=== PATIENT | male | born 1930 | race Caucasian/White ===

== ENCOUNTER 2017-09-27 05:49 | Inpatient (IN) | payer MEDICARE, OTHER ==
[~2017-09-27] VITALS: Ht 167.6 cm; Wt 93.9 kg
[2017-09-27] VITALS (12 sets, daily range): BP systolic 124–174; BP diastolic 55–75
[~2017-09-27 05:49] MED LIST: AMLODIPINE BESYL5 MG ORAL; CRESTOR10 M2 ORAL; CYMBALTA30 MG ORAL; LOSARTAN POTASS50 MG ORAL; SYNTHROID25 MCG ORAL; metoprolol PO
[2017-09-27] MEDS ORDERED: TAMSULOSIN HCL0.4 MG ORAL (06:49)
[2017-09-27] MEDS ORDERED: ASPIR 8181 MG ORAL (06:49)
[2017-09-27] MEDS ORDERED: VITAMIN D1000 UNI2 PO (06:49)
[2017-09-27] MEDS ORDERED: MELOXICAM15 MG PO (06:49)
[2017-09-27] MEDS ORDERED: ZETIA10 MG ORAL (06:49)
[2017-09-27] MEDS ORDERED: ceFAZolin sod 1 GM in NS 55 ML IVPB SCH (07:00)
--- NOTE | 2017-09-27 07:22 | Anethesia Preoperative Eval ---
Anesthesia Pre-op PMH/ROS General Date of Evaluation: Sep 27, 2017 Anesthesiologist: Erwin ASA Score: ASA 3 Mallampati Score Class I : Soft palate, uvula, fauces, pillars visible Class II: Soft palate, uvula, fauces visible Class III: Soft palate, base of uvula visible Class IV: Only hard plate visible Mallampati Classification: Class III Surgeon: Dilshad Diagnosis: BPH Surgical Procedure: TURP, and suprapubic tube placement Anesthesia History: none Family History: no anesthesia problems Allergies: Coded Allergies: NITROFURANTOIN (Verified Allergy, Intermediate, hives, 09/26/17) Medications: see eMAR Past Medical History Cardiovascular: Reports: HTN, CAD, VT, other - CHF, HLD; Denies: valve dz, arrhythmia Pulmonary: Denies: asthma, COPD, ALON, other Gastrointestinal/Genitourinary: Reports: GERD, other - BPH, h/o colon ca s/p resection; Denies: CRI, ESRD Neurologic/Psychiatric: Reports: depression/anxiety; Denies: dementia, CVA, TIA, other Endocrine: Reports: hypothyroidism; Denies: DM, steroids, other HEENT: Reports: [place] (L); Denies: cataract (L), cataract (R), glaucoma, [place] (R), other Hematology/Immune: Denies: anemia, DVT, bleeding disorder, other Musculoskeletal/Integumentary: Reports: OA; Denies: RA, DJD, DDD, edema, other Other: obesity PSxH Narrative: partial colectomy, bilateral cataract Anesthesia Pre-op Phys. Exam Physician Exam Last Vital Signs Date Time Temp Pulse Resp B/P (MAP) Pulse Ox O2 Delivery O2 Flow Rate FiO2 09/27/17 07:21 97.7 57 20 135/59 97 Room Air 97.7 Constitutional: NAD Cardiovascular: RRR Respiratory: other - distant, and dimiished breath sounds bilaterally Airway Exam Mallampati Score: Class III MO: full ROM: full Teeth: missing Dentures: upper, lower Anesthesia Pre-op A/P Labs see chart Studies Pre-op Studies: EKG - sb Risk Assessment & Plan Assessment: ASA III Plan: GA Status Change Before Surgery: No Pre-Antibiotics Drug: Ancef 2g Given Within 1 Hr of Incision: Yes CADE PELAEZ M.D. Sep 27, 2017 07:22
[2017-09-27] MEDS ORDERED: fentaNYL 100 mcg/2 mL IV ONE (07:26)
[2017-09-27] MEDS ORDERED: Propofol 200mg/20ml IV ONE (07:26)
[2017-09-27] MEDS ORDERED: Lidocaine 1% MPF 10mg/ml 5ml ONE (07:26)
[2017-09-27] MEDS ORDERED: Midazolam 2mg/2ml Inj ONE (07:26)
[2017-09-27] MEDS ORDERED: Zemuron 50mg/5ml Inj IV ONE (07:45)
[2017-09-27] MEDS ORDERED: Sterile Water Irrig 1000ml IRRIG ONE (07:45)
[2017-09-27] MEDS ORDERED: Sterile Water For Irrig 2000ml IRRIG ONE (07:45)
[2017-09-27] MEDS ORDERED: LR 1000ml ONE (07:45)
--- NOTE | 2017-09-27 07:56 | Pre-Procedure Note/Attestation ---
Pre-Procedure Note/Attestation Complete Prior to Procedure Planned Procedure: not applicable Procedure Narrative: TURP SP tube placement Indications for Procedure Pre-Operative Diagnosis: retention Attestation I attest that I discussed the nature of the procedure; its benefits; risks and complications; and alternatives (and the risks and benefits of such alternatives ), prior to the procedure, with the patient (or the patient's legal livestock sales representative). I attest that, if there was a reasonable possibility of needing a blood transfusion, the patient (or the patient's legal livestock sales representative) was given the [facility] standardized written summary, pursuant to the Primo Ben Blood Safety Act ([place] Health and Safety Code # 1645, as amended). I attest that I re-evaluated the patient just prior to the surgery and that there has been no change in the patient's H&P, except as documented below: Lm Yung MD Sep 27, 2017 07:56
[2017-09-27] MEDS ORDERED: LR 1000ml 1,000 ML IVLG SCH (08:14)
[2017-09-27] MEDS ORDERED: Ketorolac 30mg Inj IV PRN (08:15)
[2017-09-27] MEDS ORDERED: Hydromorphone 0.5mg/0.5ml inj IVP PRN (08:15)
[2017-09-27] MEDS ORDERED: DiphenhydrAMINE 50mg/ml Inj IVP PRN (08:15)
[2017-09-27] MEDS ORDERED: Labetalol 5mg/ml 20ml vial IV PRN (08:15)
[2017-09-27] MEDS ORDERED: Metoclopramide 10mg/2ml Inj IVP PRN (08:15)
[2017-09-27] MEDS ORDERED: LORazepam Inj 2mg/ml 1ml IV PRN (08:15)
[2017-09-27] MEDS ORDERED: fentaNYL 100 mcg/2 mL IV PRN (08:15)
[2017-09-27] MEDS ORDERED: Midazolam 2mg/2ml Inj IVP PRN (08:15)
--- NOTE | 2017-09-27 08:19 | Immediate Post-Op Evaluation ---
Immediate Post-Op Evalulation Immediate Post-Op Evalulation Procedure: TURP and suprapubic tube placement Date of Evaluation: Sep 27, 2017 Time of Evaluation: 09:20 IV Fluids: 600 Blood Products: 0 Estimated Blood Loss: 50 Urinary Output: 0 Blood Pressure Systolic: 129 Blood Pressure Diastolic: 56 Pulse Rate: 62 Respiratory Rate: 17 O2 Sat by Pulse Oximetry: 97 Temperature (Fahrenheit): 97.2 Pain Score (1-10): 0 Nausea: No Vomiting: No Complications 0 Patient Status: awake, reacts, patent, none Hydration Status: adequate Drug: Ancef 2g Given Within 1 Hr of Incision: Yes Time Given: 08:05 CADE PELAEZ M.D. Sep 27, 2017 08:19
[2017-09-27] MEDS ORDERED: Dexamethasone 4mg/ml vial ONE (08:30)
[2017-09-27] MEDS ORDERED: Norco 5mg/325mg tab ORAL PRN (09:00)
[2017-09-27] MEDS ORDERED: Morphine Sulfate 4mg/ml Inj IVP PRN (09:00)
[2017-09-27] MEDS: Docusate 100mg cap ORAL SCH ×2 (09:00→18:08)
--- NOTE | 2017-09-27 09:12 | Brief Operative Note ---
Immediate Post Operative Note Operative Note Pre-op Diagnosis: retention Procedure: TURP SP tube placement Post-op Diagnosis: same Post-op Diagnosis: same as pre-op Surgeon: Bill Yung Anesthesia: general Specimen: yes Complications: none Condition: stable Fluids: 1000 Estimated Blood Loss: minimal Implant(s) used?: No Lm Yung MD Sep 27, 2017 09:12
[2017-09-27 10:09] LABS: BASOPHILS % (AUTO) 0.6 % (0.0-2.0); EOSINOPHILS % (AUTO) 3.8 % (0.0-3.0); HEMATOCRIT 38.2 % (42.0-52.0); HEMOGLOBIN 12.8 G/DL (14.2-18.0); LYMPHOCYTES % (AUTO) 13.5 % (20.0-45.0); MEAN CORPUSCULAR VOLUME 95 FL (80-99); MONOCYTES % (AUTO) 2.9 % (1.0-10.0); NEUTROPHILS % (AUTO) 79.3 % (45.0-75.0); PLATELET COUNT 251 K/UL (150-450); RED BLOOD COUNT 4.04 M/UL (4.70-6.10); RED CELL DISTRIBUTION WIDTH 11.4 % (11.6-14.8); WHITE BLOOD COUNT 12.9 K/UL (4.8-10.8)
[2017-09-27 10:22] LABS: ANION GAP 7 mmol/L (5-15); BLOOD UREA NITROGEN 24 mg/dL (7-18); CALCIUM 8.2 MG/DL (8.5-10.1); CARBON DIOXIDE 23 MMOL/L (21-32); CHLORIDE 98 MMOL/L (98-107); CREATININE 1.2 MG/DL (0.55-1.30); POTASSIUM 4.8 MMOL/L (3.5-5.1); SODIUM 128 MMOL/L (136-145)
[2017-09-27] MEDS: D5 1/2NS w/KCl 20mEq 1,000 ML IV SCH ×2 (13:34→22:28)
[2017-09-27] MEDS ORDERED: ceFAZolin sod 2 GM in D5W 110 ML IV SCH (16:00)
[2017-09-27] MEDS: ceFAZolin 2gm/50ml Premix 50 ML IV SCH ×2 (18:06→23:27)
[2017-09-27] MEDS: Atorvastatin 20mg tab ORAL SCH (21:30)
[2017-09-27] MEDS: Tamsulosin 0.4mg cap ORAL SCH (21:30)
[2017-09-28] VITALS (7 sets, daily range): BP systolic 117–143; BP diastolic 44–58
[2017-09-28] MEDS: Levothyroxine 25mcg tab ORAL SCH (06:26)
[2017-09-28 06:33] LABS: HEMATOCRIT 31.3 % (42.0-52.0); HEMOGLOBIN 11.1 G/DL (14.2-18.0); MEAN CORPUSCULAR VOLUME 93 FL (80-99); PLATELET COUNT 223 K/UL (150-450); RED BLOOD COUNT 3.36 M/UL (4.70-6.10); RED CELL DISTRIBUTION WIDTH 11.1 % (11.6-14.8); WHITE BLOOD COUNT 19.6 K/UL (4.8-10.8)
[2017-09-28 06:54] LABS: ANION GAP 7 mmol/L (5-15); BLOOD UREA NITROGEN 24 mg/dL (7-18); CARBON DIOXIDE 24 MMOL/L (21-32); CHLORIDE 105 MMOL/L (98-107); CREATININE 1.2 MG/DL (0.55-1.30); POTASSIUM 5.1 MMOL/L (3.5-5.1); SODIUM 136 MMOL/L (136-145)
[2017-09-28] MEDS: ceFAZolin 2gm/50ml Premix 50 ML IV SCH (08:30)
[2017-09-28] MEDS: D5 1/2NS w/KCl 20mEq 1,000 ML IV SCH ×2 (08:30→19:00)
[2017-09-28] MEDS ORDERED: Bacitracin Oint 15gm Tube TOPIC SCH (09:45)
[2017-09-28] MEDS: Losartan 50mg tab ORAL SCH (09:46)
[2017-09-28] MEDS: Metoprolol Succinate XL 25mg tab ORAL SCH (09:46)
[2017-09-28] MEDS: Docusate 100mg cap ORAL SCH ×2 (09:47→17:58)
[2017-09-28] MEDS: DULoxetine 30mg cap ORAL SCH (09:47)
--- NOTE | 2017-09-28 11:02 | 48 Hour Post Anesthesia Eval ---
Post Anesthesia Evaluation Procedure: TURP and suprapubic tube placement Date of Evaluation: Sep 28, 2017 Time of Evaluation: 11:01 Blood Pressure Systolic: 156 0: 78 Pulse Rate: 64 Respiratory Rate: 20 Temperature (Fahrenheit): 97.6 O2 Sat by Pulse Oximetry: 98 Airway: patent Nausea: No Vomiting: No Pain Intensity: 2 Hydration Status: adequate Cardiopulmonary Status: stable Mental Status/LOC: patient returned to baseline Follow-up Care/Observations: n/a Post-Anesthesia Complications: none Follow-up care needed: ready to discharge Jose Rice MD Sep 28, 2017 11:02
[2017-09-28] MEDS: Bacitracin Oint 15gm Tube TOPIC SCH ×2 (13:02→17:58)
--- NOTE | 2017-09-28 14:45 | Consultation ---
DATE OF CONSULTATION: 09/28/2017 INTERNAL MEDICINE CONSULTATION CONSULTING PHYSICIAN: Montana Saldaña M.D. HISTORY OF PRESENT ILLNESS: This is an 86-year-old male, who has undergone successful TURP yesterday by Dr. Lm Yung. He has a previous history of retention of urine, has suprapubic catheter. He is doing well postop day #1. PAST MEDICAL HISTORY: Notable for hypertension, osteoarthrosis, obesity, hyperlipidemia, BPH, and hypothyroidism. He also has history depression and chronic back pain. ALLERGIES: Nitrofurantoin. HOME MEDICATIONS: Synthroid 25 mcg daily, meloxicam, Crestor, duloxetine, Flomax, dutasteride, amlodipine, metoprolol, losartan, omeprazole, Lasix, , Zetia, donepezil, and Benadryl. PAST SURGICAL HISTORY: None reported. FAMILY HISTORY: Noncontributory. REVIEW OF SYSTEMS: The patient denies any headaches, hematemesis, melena, hematochezia, or weight loss. PHYSICAL EXAMINATION: GENERAL: Reveals an obese 86-year-old male. HEENT: Unremarkable. CHEST: Clear breath sounds bilaterally. ABDOMEN: Soft. NEUROLOGIC: Nonfocal. LABORATORY DATA: Lab testing preoperatively is within normal limits. Postoperatively, his white count today , hemoglobin 11.1, platelet count is normal. Chemistry notable for creatinine 1.2, glucose 162. 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 IMPRESSION: 1. MRSA nares. 2. Status post TURP. 3. Hypertension. 4. Depression. 5. Low back pain. DISCUSSION: We will retain a suprapubic catheter placement, add bacitracin ointment for MRSA nares. Continue home medications, bladder irrigation, and for discharge home tomorrow. Montana Saldaña M.D. DR: TAIWO JOB#: [id number] CC:
[2017-09-28] MEDS ORDERED: NS Irrig 1000ml ONE (15:52)
[2017-09-28] MEDS: Tamsulosin 0.4mg cap ORAL SCH (20:50)
[2017-09-28] MEDS: Atorvastatin 20mg tab ORAL SCH (20:50)
[2017-09-29] VITALS: BP 137/59
[2017-09-29 04:00] VITALS: BP 121/58
[2017-09-29 06:21] LABS: BASOPHILS % (AUTO) 0.3 % (0.0-2.0); EOSINOPHILS % (AUTO) 1.9 % (0.0-3.0); HEMATOCRIT 31.7 % (42.0-52.0); MEAN CORPUSCULAR VOLUME 94 FL (80-99); MONOCYTES % (AUTO) 8.3 % (1.0-10.0); NEUTROPHILS % (AUTO) 71.5 % (45.0-75.0); PLATELET COUNT 225 K/UL (150-450); RED BLOOD COUNT 3.37 M/UL (4.70-6.10); RED CELL DISTRIBUTION WIDTH 11.6 % (11.6-14.8); WHITE BLOOD COUNT 14.7 K/UL (4.8-10.8)
[2017-09-29 06:35] LABS: ANION GAP 6 mmol/L (5-15); BLOOD UREA NITROGEN 19 mg/dL (7-18); CALCIUM 8.4 MG/DL (8.5-10.1); CARBON DIOXIDE 26 MMOL/L (21-32); CHLORIDE 105 MMOL/L (98-107); POTASSIUM 4.4 MMOL/L (3.5-5.1); SODIUM 137 MMOL/L (136-145)
[2017-09-29] MEDS: Levothyroxine 25mcg tab ORAL SCH (06:42)
[2017-09-29 08:00] VITALS: BP 120/49
--- NOTE | 2017-09-29 08:15 | Pulmonology Progress Note ---
Assessment/Plan Assessment/Plan 1. MRSA nares. 2. Status post TURP. 3. Hypertension. 4. Depression. 5. Low back pain. DISCUSSION: Continue suprapubic catheter placement, added bacitracin ointment for MRSA nares. Continue home medications DC home with home evin Levaquin, Moh[place] and Colace Subjective Interval Events: Doing well; no overnight problems Constitutional: Reports: no symptoms HEENT: Repors: no symptoms Respiratory: Reports: no symptoms Cardiovascular: Reports: no symptoms Gastrointestinal/Abdominal: Reports: no symptoms Genitourinary: Reports: no symptoms Allergies: Coded Allergies: NITROFURANTOIN (Verified Allergy, Intermediate, hives, 09/26/17) Objective Last 24 Hour Vital Signs Date Time Temp Pulse Resp B/P (MAP) Pulse Ox O2 Delivery O2 Flow Rate FiO2 09/29/17 04:00 97.6 62 18 121/58 96 Room Air 97.6 09/29/17 00:00 97.6 62 18 137/59 96 Room Air 97.6 09/28/17 20:00 97.7 59 18 127/55 Room Air 97.7 09/28/17 19:59 Room Air 09/28/17 19:59 98 Room Air 09/28/17 16:00 97.7 55 18 143/55 Room Air 97.7 09/28/17 12:00 97.7 59 18 131/57 98 Room Air 97.7 09/28/17 11:02 207.7 64 20 98 09/28/17 09:47 83 141/51 09/28/17 09:46 83 141/51 09/28/17 09:46 141/51 09/28/17 09:40 83 141/51 Intake and Output 09/28/17 09/29/17 19:00 07:00 Intake Total 1800 ml 240 ml Output Total 1800 ml 2075 ml Balance 0 ml -1835 ml Intake Oral 650 ml 240 ml IV Total 1150 ml Output Urine Total 1800 ml 2075 ml General Appearance: no acute distress HEENT: normocephalic Respiratory/Chest: chest wall non-tender, lungs clear Cardiovascular: normal peripheral pulses, normal rate Abdomen: normal bowel sounds Microbiology Date/Time Source Procedure Growth Status 09/27/17 06:25 Nasal Nares MRSA Culture - Final Staphylococcus Aureus - Mrsa Complete Laboratory Tests 09/29/17 04:50: White Blood Count 14.7H, Red Blood Count 3.37L, Hemoglobin 11.0L, Hematocrit 31.7L, Mean Corpuscular Volume 94, Mean Corpuscular Hemoglobin 32.6H, Mean Corpuscular Hemoglobin Concent 34.6, Red Cell Distribution Width 11.6, Platelet Count 225, Mean Platelet Volume 6.6, Neutrophils (%) (Auto) 71.5, Lymphocytes (% ) (Auto) 18.0L, Monocytes (%) (Auto) 8.3, Eosinophils (%) (Auto) 1.9, Basophils (%) (Auto) 0.3, Sodium Level 137, Potassium Level 4.4, Chloride Level 105, Carbon Dioxide Level 26, Anion Gap 6, Blood Urea Nitrogen 19H, Creatinine 1.0, Estimat Glomerular Filtration Rate , Glucose Level 96, Calcium Level 8.4L Current Medications Medications (Trade) Dose Ordered Sig/Brenda Route PRN Reason Start Time Stop Time Status Last Admin Dose Admin Acetaminophen (Tylenol) 650 mg Q4H PRN ORAL FEVER 09/27/17 09:00 10/27/17 08:59 Acetaminophen (Tylenol) 650 mg Q6H PRN ORAL Mild Pain (Pain Scale 1-3) 09/27/17 09:00 10/27/17 08:59 Acetaminophen/ Hydrocodone Bitart (Mohawk 5/325) 1 tab Q4H PRN ORAL Moderate Pain (Pain Scale 4-6) 09/27/17 09:00 10/04/17 08:59 09/27/17 22:25 Amlodipine Besylate (Norvasc) 5 mg DAILY ORAL 09/28/17 09:00 10/28/17 08:59 09/28/17 09:47 Atorvastatin Calcium (Lipitor) 20 mg BEDTIME ORAL 09/27/17 21:00 10/27/17 20:59 09/28/17 20:50 Bacitracin (Bacitracin 15gm tube) 1 applic THREE TIMES A DAY TOPIC 09/28/17 13:00 10/28/17 09:44 09/28/17 17:58 Docusate Sodium (Colace) 100 mg TWICE A DAY ORAL 09/27/17 09:00 10/27/17 08:59 09/28/17 17:58 Duloxetine HCl (Cymbalta) 30 mg DAILY ORAL 09/28/17 09:00 10/28/17 08:59 09/28/17 09:47 EZETIMIBE (Zetia) 10 mg BEDTIME ORAL 09/27/17 21:00 10/27/17 20:59 09/28/17 20:50 Levothyroxine Sodium (Synthroid) 25 mcg DAILY@0630 ORAL 09/28/17 06:30 10/28/17 06:29 09/29/17 06:42 Losartan Potassium (Cozaar) 50 mg DAILY ORAL 09/28/17 09:00 10/28/17 08:59 09/28/17 09:46 Metoprolol Succinate (Toprol XL) 25 mg DAILY ORAL 09/28/17 09:00 10/28/17 08:59 09/28/17 09:46 Morphine Sulfate (Morphine Sulfate) 4 mg Q4H PRN IVP pain score 7-10 09/27/17 09:00 10/04/17 08:59 Tamsulosin HCl (Flomax) 0.4 mg BEDTIME ORAL 09/27/17 21:00 10/27/17 20:59 09/28/17 20:50 Temazepam (Restoril) 7.5 mg DAILYPRN PRN ORAL Insomnia 09/27/17 09:00 10/04/17 08:59 Montana Saldaña MD Sep 29, 2017 08:15
[2017-09-29] MEDS ORDERED: LEVAQUIN500 MG ORAL (08:18)
[2017-09-29] MEDS ORDERED: NORCO 5-325 TA1 EACH ORAL (08:18)
[2017-09-29] MEDS ORDERED: COLACE100 MG ORAL (08:18)
[2017-09-29] MEDS: Metoprolol Succinate XL 25mg tab ORAL SCH (09:00)
[2017-09-29] MEDS: DULoxetine 30mg cap ORAL SCH (09:33)
[2017-09-29] MEDS: Docusate 100mg cap ORAL SCH (09:33)
[2017-09-29] MEDS: Losartan 50mg tab ORAL SCH (09:34)
[2017-09-29] MEDS: Bacitracin Oint 15gm Tube TOPIC SCH ×2 (09:35→13:07)
[2017-09-29 12:00] VITALS: BP 129/51
--- NOTE | 2017-10-01 10:09 | Discharge Summary ---
Discharge Summary Hospital Course Date of Admission Sep 27, 2017 at 05:49 Date of Discharge Sep 29, 2017 at 15:50 Admitting Diagnosis urinary retention Reason for Hospitalization: Elective surgery HPI Jase Parrish is a 86 year old male who was admitted on Sep 27, 2017 at 05: 49 for Urinary Retention and Enlarged Prostate. Patient was admitted for elective surgery. Consultations dr Saldaña- IM Procedures s/p 09/27/[address] Dilshad PALACIO, suprapubic tube placement Hospital Course Status post surgery Course of recovery uneventful continuous bladder irrigation, manual irrigation as needed IVF empiric antibiotics CBI dc when urine cleared suprapubic catheter care provided patient was taught on suprapubic catheter care at home. pain management provided, pain addressed and controlled bowel regimen instituted. blood pressure was managed with beta noreen and ARB , remained stable IM doctor closely followed Flomax and Zetia continued Bacitracin ointment was added to existing medication regimen for MRSA nares supportive care patient was able to tolerate diet. patient was able to ambulate discharge instructions provided outpatient follow-up with surgeon as advised patient was stable for discharge home with home health services to follow FINAL DIAGNOSES urinary retention s/p TURP and suprapubic catheter placement Hypertension Depression Low back pain MRSA nares Discharge Medications New Medications: Docusate Sodium* (Colace*) 100 Mg Capsule 100 MG ORAL TWICE A DAY, #60 CAP Levofloxacin* (Levaquin*) 500 Mg Tablet 500 MG ORAL DAILY for 10 Days, TAB Hydrocodone Bit/Acetaminophen 5-325* ([place] 5-325*) 1 Each Tablet 1 TAB ORAL Q4H PRN, #30 TAB Continued Medications: Amlodipine Besylate* (Amlodipine Besylate*) 5 Mg Tablet 5 MG ORAL DAILY, TAB (This prescription has been renewed) Aspirin* (Aspir 81*) 81 Mg Tablet. 81 MG ORAL DAILY, TAB (This prescription has been renewed) Cholecalciferol (Vitamin D3) (Vitamin D) 1,000 Unit Capsule 1000 UNIT PO DA, CAP (This prescription has been renewed) Duloxetine Hcl* (Cymbalta*) 30 Mg Capsule.dr 30 MG ORAL DAILY, CAP (This prescription has been renewed) Ezetimibe (Zetia*) 10 Mg Tablet 10 MG ORAL BEDTIME, TAB (This prescription has been renewed) Levothyroxine Sodium* (Synthroid*) 25 Mcg Tablet 25 MCG ORAL DAILY, TAB (This prescription has been renewed) Take in the morning on an empty stomach, at least 30 minutes before food. Losartan Potassium* (Losartan Potassium*) 50 Mg Tablet 100 MG ORAL DAILY, TAB (This prescription has been renewed) Meloxicam* (Meloxicam*) 15 Mg Tablet 15 MG PO DAILY, TAB (This prescription has been renewed) [metoprolol] () 25 MG PO DAILY (This prescription has been renewed) Rosuvastatin Calcium* (Crestor*) 10 Mg Tablet 10 MG ORAL DAILY, TAB (This prescription has been renewed) Tamsulosin Hcl (Tamsulosin Hcl*) 0.4 Mg Cap.er.24h 0.4 MG ORAL BEDTIME, CAP (This prescription has been renewed) Discharge Condition Upon Discharge: stable Discharge Disposition Patient was discharged to Home with Home Health(06) Discharge Instructions Discharge Instructions Special Instructions I have been assigned to complete a D/C Summary on this account. I was not involved in the patient management Mary Lozoya NP Oct 01, 2017 10:09
--- NOTE | 2017-10-02 10:30 | Operative Note - Dictated ---
DATE OF OPERATION: 09/27/2017 NOTE: POOR AUDIO PREOPERATIVE DIAGNOSES: Urinary retention and benign prostatic hypertrophy. POSTOPERATIVE DIAGNOSES: Urinary retention and benign prostatic hypertrophy. OPERATION: Transurethral resection of the prostate and placement of the suprapubic catheter. HAND FUR CLEANER: Lm Yung M.D. ANESTHESIA: General. FINDINGS: Large prostate and neurogenic bladder. INDICATION FOR SURGERY: The patient failed multiple voiding trials, status post . Treatment options were explained to the patient in great length including all potential complications. He signed the consent. DESCRIPTION OF SURGERY: He was brought to the operating room, placed in lithotomy position, prepped and draped in standard fashion. Under general anesthesia, a [place] retractor was used. A counterincision was made in the suprapubic area . Dao catheter inside the retractor and moved back into the bladder. Good urine output was noticed. Tube was fixed with nylon sutures to the skin. After that, formal transurethral resection of the prostate with the bipolar resectoscope was done. Chips were evacuated with [facility] evacuator. The prostate fossa was fulgurated. A 24-[place] two-way Dao catheter was placed and left indwelling ____. Sponge count and instrument count was correct. Lm Yung M.D. DR: MUSHTAQ JOB#: [id number] CC:
== END 2017-09-29 15:50 | disposition home health service (06) | DRG 714 ==
LOC: SDSOVERFLO 05:49 → 3E 10:30
PROC: 0VT08ZZ Resection of Prostate, Via Natural or Artificial Opening Endoscopic (ICD-10-PCS; principal; 2017-09-27 07:30)
DX: N40.1 Benign prostatic hyperplasia with lower urinary tract symptoms (principal); I10 Essential (primary) hypertension; Z22.322 Carrier or suspected carrier of Methicillin resistant Staphylococcus aureus; R33.8 Other retention of urine; E66.9 Obesity, unspecified; Z68.33 Body mass index [BMI] 33.0-33.9, adult; M19.90 Unspecified osteoarthritis, unspecified site; E78.5 Hyperlipidemia, unspecified; E03.9 Hypothyroidism, unspecified; F32.9 Major depressive disorder, single episode, unspecified; M54.9 Dorsalgia, unspecified
CPT/HCPCS: 36415; 80048; 85007; 85025; 86850; 86870; 86900; 86901; 86904; 87081; 94003; 94150; 94760; J2250; J2405